=== PATIENT | male | born 2000 ===

== ENCOUNTER 2022-12-10 18:31 | Outpatient (REF) | payer BC, SELFPAY ==
[2022-12-10 21:25] LABS: TSH (W/Ref FT4) 2.25 uIU/mL (0.36-3.74)
== END 2022-12-10 18:32 | disposition home or self-care (01) ==
LOC: NCHCN 18:31
PROVIDERS: PCP Internal Medicine; Visit Provider Internal Medicine
DX: F41.9 Anxiety disorder, unspecified (principal)
CPT/HCPCS: 84443